=== PATIENT | female | born 1985 | race Caucasian/White ===

== ENCOUNTER 2023-09-11 15:41 | Emergency (ER) | payer MEDICAID ==
[~2023-09-11] VITALS: Ht 160 cm; Wt 100.6 kg
[2023-09-11 15:52] VITALS: BP 163/92; PULSE 107; RESP 18; TEMP 97.8; O2SAT 95
[2023-09-11 17:08] LABS: BASOPHILS # (AUTO) 0.2 X10'3 (0-0.2); BASOPHILS % (AUTO) 1.4 % (0-1); EOSINOPHILS # (AUTO) 4.8 X10'3 (0-0.9); EOSINOPHILS % (AUTO) 36.2 % (0-6); HEMATOCRIT 37.3 % (35.0-45.0); HEMOGLOBIN 12.8 g/dl (12.0-16.0); LYMPHOCYTES # (AUTO) 1.7 X10'3 (1.1-4.8); LYMPHOCYTES % (AUTO) 13.1 % (21-51); MEAN CORPUSCULAR HEMOGLOBIN 29.7 PG (27.0-31.0); MEAN CORPUSCULAR HGB CONC 34.3 g/dL (33.0-36.5); MEAN CORPUSCULAR VOLUME 86.6 FL (78-98); MONOCYTES # (AUTO) 0.6 X10'3 (0-0.9); MONOCYTES % (AUTO) 4.2 % (2-12); NEUTROPHILS % (AUTO) 45.1 % (42-75); PLATELET COUNT 397 X10'3 (140-440); RED BLOOD COUNT 4.31 X10'6 (4.20-5.60); RED CELL DISTRIBUTION WIDTH 14.6 % (11.5-14.5); WHITE BLOOD COUNT 13.3 X10'3 (4.5-11.0)
[2023-09-11 17:18] LABS: ALBUMIN 3.3 G/DL (3.4-5.0); ANION GAP 4 (8-16); BLOOD UREA NITROGEN 10 MG/DL (7-18); BUN/CREATININE RATIO 9.7 (10.0-20.0); CHLORIDE 104 MMOL/L (99-107); CREATININE 1.03 MG/DL (0.40-0.90); GLUCOSE 129 MG/DL (70-104); POTASSIUM 3.7 MMOL/L (3.5-5.1); PRO BRAIN NATRIURETIC PEPTIDE 120 PG/ML (0-125); SODIUM 137 MMOL/L (135-145); TOTAL CARBON DIOXIDE 29.5 MMOL/L (24-32); eCRCL 61 ML/MIN; eGFR 60 ML/MIN
[2023-09-11 17:39] LABS: TOTAL CELLS COUNTED 100
[2023-09-11 17:40] LABS: PLATELET ESTIMATE NORMAL
[2023-09-11] MEDS ORDERED: FURO-150 PO (23:14)
== END 2023-09-11 20:17 | disposition left against medical advice (07) ==
LOC: ER 15:42
DX: R22.43 Localized swelling, mass and lump, lower limb, bilateral (principal); R22.33 Localized swelling, mass and lump, upper limb, bilateral; Z53.21 Procedure and treatment not carried out due to patient leaving prior to being seen by health care provider
CPT/HCPCS: 36415; 80048; 83880; 85007; 85025

== ENCOUNTER 2023-09-11 21:32 | Emergency (ER) | payer MEDICAID ==
[~2023-09-11] VITALS: Ht 160 cm; Wt 100.4 kg
[2023-09-11 21:41] VITALS: BP 147/99; PULSE 100; TEMP 97.1; O2SAT 97
[2023-09-11 22:46] VITALS: RESP 16
[2023-09-11] MEDS ORDERED: FURO-150 PO (23:14)
== END 2023-09-11 23:36 | disposition home or self-care (01) ==
LOC: ER 21:33
DX: R60.0 Localized edema (principal)
CPT/HCPCS: 99283